=== PATIENT | male | born 1995 | race Two or more races ===

== ENCOUNTER 2025-01-07 17:34 | Emergency (ER) | payer OTHER ==
[~2025-01-07] VITALS: Ht 167.6 cm; Wt 95.3 kg
[2025-01-07 17:53] VITALS: O2SAT 99
== END 2025-01-07 20:09 | disposition left against medical advice (07) ==
LOC: ER 17:42
DX: R07.9 Chest pain, unspecified (principal); Z53.21 Procedure and treatment not carried out due to patient leaving prior to being seen by health care provider
CPT/HCPCS: A4606; A4663